=== PATIENT | female | born 1985 | race Caucasian/White ===

== ENCOUNTER 2024-11-07 08:09 | Outpatient (CLI) | payer BC, SELFPAY ==
--- NOTE | 2024-11-07 08:15 | CRLHL7_ITS ---
For Patients: As a result of the Century Cures Act, medical imaging exams and procedure reports are released immediately into your electronic medical record. You may view this report before your referring provider. If you have questions, please contact your health care provider. OB ULTRASOUND LMP: 07/16/2024. PITA by LMP: 04/22/2025. GA: 16 w, 2 d. Single. Comparison: None, first ultrasound. INDICATION: Dating and viability. TECHNIQUE: Real time grayscale imaging of the fetus was performed. Transabdominal. CERVIX: Visualized. Measurement: 3.4 cm. POSITIONING: Breech. AMNIOTIC FLUID: 3.4 cm. SDP (N: greater than 2 x 1 cm) PLACENTA: Technique: Transabdominal. PLACENTA POSITION: Anterior. DOPPLER: heart rate: 147 bpm. BIOMETRY: BPD: 3. cm. 16 w, 5 d, 66.3 percent. HC: 12.4 cm. 16 w, 2 d, 33.9 percent. AC: 10.9 cm. 16 w, 5 d, 67.2 percent. FL: 2.1 cm. 16 w, 2 d, 44.2 percent. FL/AC ratio: 19.3 percent. HC/AC ratio: 1.1. EFW: 158.5 g. Weight: 6 oz. age by this US: 16 w, 3 d. PITA by this US: 04/21/2024. Percentile by PITA: 56.3 percent. COMMENT: PITA by LMP 04/22/2025. Cerebellum 1.51 cm, 16 weeks 3 days. IMPRESSION: 1. Sonographic gestational age 16 weeks 3 days and sonographic due date 04/21/2025. 2. A placental tinoco appears to be present at the superior aspect of the placenta measuring 6.5 x 1.4 x 2.5 cm. 3. Too early for anatomic survey, although choroid plexus cysts may be present. Follow-up at the normal anatomic survey time for further evaluation. David Millan M.D. Diagnostic Radiologist [email or web address] calero/Dictated by: David Millan MD @ 11/09/2024 9:20:00 PM (Electronically Signed)
== END 2024-11-07 08:10 | disposition home or self-care (01) ==
LOC: US 08:09
PROVIDERS: Visit Provider Registered Nurse
DX: Z34.92 Encounter for supervision of normal pregnancy, unspecified, second trimester (principal); Z3A.16 16 weeks gestation of pregnancy
CPT/HCPCS: 76815; 76817

== ENCOUNTER 2024-11-07 09:10 | Outpatient (CLI) | payer BC, SELFPAY ==
[2024-11-07 15:33] LABS: Chlamydia DNA Amplified* NOT DETECTED (No Detected); GC DNA Amplified* NOT DETECTED (No Detected)
[2024-11-12 00:47] LABS: HPV Source Cervix
[2024-11-13 09:14] LABS: Pap Test Digital Imaging Done
== END 2024-11-07 09:11 | disposition home or self-care (01) ==
PROVIDERS: Visit Provider Registered Nurse
DX: Z34.82 Encounter for supervision of other normal pregnancy, second trimester (principal); Z67.10 Type A blood, Rh positive
CPT/HCPCS: 76815; 83020; 83021; 85660; 86592; 86703; 86704; 86706; 86762; 86787; 86803; 86850; 86900; 86901; 87086; 87340; 87491; 87591; 87624; 87625; 88141; 88142; 88175

== ENCOUNTER 2024-11-26 08:45 | Outpatient (CLI) | payer BC, SELFPAY | END 2024-11-26 08:46 | disposition home or self-care (01) | LOC: US 08:46 | PROVIDERS: Visit Provider Registered Nurse | DX: O09.522 Supervision of elderly multigravida, second trimester (principal); Z3A.19 19 weeks gestation of pregnancy | CPT/HCPCS: 76811 ==

== ENCOUNTER 2025-01-29 09:03 | Outpatient (CLI) | payer BC, SELFPAY | END 2025-01-29 09:04 | disposition home or self-care (01) | LOC: NFLDREF 01-31 17:48 | PROVIDERS: Visit Provider Advanced Practice Midwife | DX: Z34.92 Encounter for supervision of normal pregnancy, unspecified, second trimester (principal) | CPT/HCPCS: 86592 ==

== ENCOUNTER 2025-02-04 08:18 | Outpatient (CLI) | payer BC, SELFPAY | END 2025-02-04 08:19 | disposition home or self-care (01) | LOC: NFLDREF 02-05 18:53 | PROVIDERS: Visit Provider Advanced Practice Midwife | DX: O99.810 Abnormal glucose complicating pregnancy (principal) | CPT/HCPCS: 82951; 82952 ==

== ENCOUNTER 2025-03-21 21:25 | Outpatient (CLI) | payer BC, SELFPAY ==
--- NOTE | 2025-03-21 22:15 | PC.OBNST ---
NST Note NST Note Start: 03/21/25 21:29 Freq: ONCE Status: Active Protocol: Document 03/21/25 22:14 ZO (Rec: 03/21/25 22:15 ZO Desktop) NST Note 6 Para (# of births) 4 EDC 04/22/25 Gestational Age In 35 Weeks & 3 Days Weeks & Days High Risk Factors Advanced Maternal Age Patient Presented Decreased movement with Complaint(s) of Reactive Yes Appropriate for Yes Gestational Age RN Autumn RN Date 03/21/25 Reactive Yes Appropriate for Yes Gestational Age RN Elmira RN Date 03/21/25 OB NST charge Yes Complete NST Note Yes via Write Note The provider's electronic signature indicates the NST is reactive/appropriate for gestational age. *Note to provider: If an addendum is required, open the patient's chart and click on the note under the Nurse/Allied Health tab.
[2025-03-21 22:21] VITALS: BP 114/65; PULSE 95
[2025-03-21 22:34] VITALS: RESP 16; TEMP 36.7
== END 2025-03-21 22:25 | disposition home or self-care (01) ==
LOC: OB OUT 21:25 → OB 21:28
PROVIDERS: Visit Provider Obstetrics & Gynecology
DX: O36.8130 Decreased fetal movements, third trimester, not applicable or unspecified (principal); Z3A.35 35 weeks gestation of pregnancy
CPT/HCPCS: 59025; G0463

== ENCOUNTER 2025-03-27 13:40 | Outpatient (CLI) | payer BC, SELFPAY | END 2025-03-27 13:41 | disposition home or self-care (01) | LOC: NFLDREF 04-03 06:39 | PROVIDERS: Visit Provider Obstetrics & Gynecology | DX: Z34.93 Encounter for supervision of normal pregnancy, unspecified, third trimester (principal) | CPT/HCPCS: 87081; 87653 ==